=== PATIENT | female | born 1995 | race Two or more races ===

== ENCOUNTER 2023-01-29 04:13 | Emergency (ER) | payer OTHER ==
[~2023-01-29] VITALS: Ht 181.6 cm; Wt 84.8 kg
[2023-01-29] MEDS ORDERED: ADDERALL 20 MG20 MG (04:27)
== END 2023-01-29 05:33 | disposition home or self-care (01) ==
LOC: ER 04:14
DX: J32.9 Chronic sinusitis, unspecified (principal); R51.9 Headache, unspecified

== ENCOUNTER → 2024-10-20 | Emergency (ER) | payer OTHER ==
[~2024-10-20] VITALS: Ht 180.3 cm; Wt 88.9 kg
[~2024-10-20] MED LIST: ADDERALL 20 MG20 MG; CEPHALEXIN500 MG PO
[2024-10-20 23:57] LABS: BASO % 0.3 % (0.1-1.2); EOS # 0.02 (0.04-0.54); EOS % 0.2 % (0.7-7.0); LYMPH # 2.02 (1.18-3.74); LYMPH % 20.8 % (19.3-53.1); MEAN PLATELET VOLUME 9.00 fl (9.4-12.4); MONO # 0.57 (0.24-0.82); MONO % 5.9 % (4.7-12.5); NEUT # 7.05 (1.56-6.13); NEUT % 72.6 % (34.0-71.1); RED CELL DISTRIBUTION WIDTH 11.8 % (11.6-14.4)
[2024-10-21 00:42] LABS: URINE APPEARANCE Clear; URINE BILIRRUBIN Negative (NEGATIVE); URINE BLOOD Negative; URINE COLOR Yellow; URINE GLUCOSE Negative (NEGATIVE); URINE LEUKOCYTE Moderate; URINE NITRATE Negative; URINE PROTEIN Negative (NEGATIVE); URINE UROBILINOGEN 1.0 E.U./dl
[2024-10-21 00:46] LABS: URINE BACTERIA 2692.5 uL (0.0-1933); URINE EPITHELIAL CELLS 39.6 uL (0.0-38.8); URINE RBC 9.0 uL (0.0-20.8); URINE WBC 61.8 uL (0.0-23.2)
[2024-10-21 01:08] LABS: URINE CAST 0.87 uL (0.0-1.40); URINE KETONE 40 (NEGATIVE)
[2024-10-21 02:08] LABS: BUN CREA RATIO 16.0 (7.0-25.0); CREATININE SERUM 0.43 mg/dL (0.55-1.02); GFR 176.14; GLUCOSE FASTING 90.0 mg/dL (65-100); OSMOLALITY SERUM 275.0 MOSM/KG (275-295)
[2024-10-21 02:09] LABS: HCG QUANTITATIVE 130480.0 mUI/mL (1-3)
== END | disposition home or self-care (01) ==
LOC: ER 22:35
PROVIDERS: Emergency Medicine
DX: O20.8 Other hemorrhage in early pregnancy (principal); Z3A.09 9 weeks gestation of pregnancy

== ENCOUNTER 2024-11-11 12:54 | Outpatient (CLI) | payer OTHER | END 2024-11-11 12:56 | disposition home or self-care (01) | LOC: PRENATAL 12:54 | PROVIDERS: ATTEND Obstetrics & Gynecology Maternal & Fetal Medicine | DX: O36.80X0 Pregnancy with inconclusive fetal viability, not applicable or unspecified (principal); Z36.82 Encounter for antenatal screening for nuchal translucency; Z14.8 Genetic carrier of other disease; O34.219 Maternal care for unspecified type scar from previous cesarean delivery; Z3A.12 12 weeks gestation of pregnancy ==

== ENCOUNTER 2025-01-09 09:49 | Outpatient (CLI) | payer OTHER | END 2025-01-09 09:50 | disposition home or self-care (01) | LOC: PRENATAL 09:49 | PROVIDERS: ATTEND Obstetrics & Gynecology Maternal & Fetal Medicine | DX: O44.02 Complete placenta previa NOS or without hemorrhage, second trimester (principal); O34.219 Maternal care for unspecified type scar from previous cesarean delivery; Z3A.20 20 weeks gestation of pregnancy ==